=== PATIENT | male | born 1940 | race Caucasian/White ===

== ENCOUNTER 2019-02-27 11:41 | Inpatient (IN) | payer MEDICARE, BC ==
[~2019-02-27] VITALS: Ht 177.8 cm; Wt 86.0 kg
--- NOTE | 2019-02-27 12:23 | NUR ---
PT PLACED ON MONITOR, AT BEDSIDE. CALL LIGHT WITHIN REACH. MD AT BEDSIDE FOR ASSESSMENT
[2019-02-27 12:55] LABS: MEAN CORPUSCULAR HEMOGLOBIN 30.3 pg (27.5-34.5); MEAN CORPUSCULAR HGB CONC 32.8 g/dL (33.2-36.2); MEAN CORPUSCULAR VOLUME 92.4 fL (81-97); MEAN PLATELET VOLUME 8.7 fL (7.4-10.4); PLATELET COUNT 200 x10^3/uL (130-400); RED BLOOD COUNT 4.08 x10^6/uL (4.38-5.82); RED CELL DISTRIBUTION WIDTH 16.5 % (9.4-14.8)
--- NOTE | 2019-02-27 12:55 | NUR ---
PT TO US
[2019-02-27 13:04] LABS: ALANINE AMINOTRANSFERASE 35 U/L (12-78); ALBUMIN 3.5 g/dL (3.4-5.0); ANION GAP 8 mmol/L (5-15); CALCIUM 8.7 mg/dL (8.5-10.1); CHLORIDE 110 mmol/L (98-107); CREATININE 3.28 mg/dL (0.7-1.3)
[2019-02-27 13:05] LABS: D-DIMER 2.89 ug/mlFEU (0.00-0.52); INTERNATIONAL NORMALIZED RATIO 2.79 (0.93-1.1); PROTHROMBIN TIME 28.2 Seconds (9.6-11.5)
[2019-02-27 13:09] LABS: ALKALINE PHOSPHATASE 56 U/L (45-117); BILIRUBIN,TOTAL 0.5 mg/dL (0.2-1.0); TOTAL PROTEIN 6.9 g/dL (6.4-8.2)
[2019-02-27 13:11] LABS: BASOPHILS # (AUTO) 0.02 x10^3/uL (0-0.1); BASOPHILS % (AUTO) 0 % (0-1); EOSINOPHILS # (AUTO) 1.77 x10^3/uL (0-0.4); EOSINOPHILS % (AUTO) 21 % (1-7); LYMPHOCYTES # (AUTO) 0.96 x10^3/uL (1-3.4); LYMPHOCYTES % (AUTO) 12 % (22-44); MD SCAN; MONOCYTES # (AUTO) 0.61 x10^3/uL (0.2-0.8); MONOCYTES % (AUTO) 7 % (2-9); NEUTROPHILS # (AUTO) 4.92 x10^3/uL (1.8-6.8); NEUTROPHILS % (AUTO) 60 % (42-75); TROPONIN I 0.272 ng/mL (0.000-0.045)
--- NOTE | 2019-02-27 13:50 | NUR ---
COLIN RN AT BEDSIDE FOR US IV PLACEMENT
--- NOTE | 2019-02-27 13:54 | NUR ---
ADMITTING MD AT BEDSIDE
--- NOTE | 2019-02-27 14:05 | NUR ---
PTS RING REMOVED DUE TO UE SWELLING, RING GIVEN TO .
--- NOTE | 2019-02-27 14:13 | NUR ---
REPORT TO RICHEI CALDERON
[2019-02-27] MEDS ORDERED: WARFARIN BIOPROSTHETIC VALVE PROTOCOL 2-3 XX PRN (14:30)
[2019-02-27] MEDS ORDERED: FUROSEMIDE 40 MG/4 ML IV ONE (14:30)
[2019-02-27] MEDS ORDERED: SODIUM CHLORIDE 0.9%, 250ML IVBOLUS ONE (14:30)
[2019-02-27] MEDS ORDERED: hydrALAzine 20 MG/ML, 1ML IVPush PRN (14:30)
[2019-02-27] MEDS ORDERED: ROPI2TAB6 PO (14:33)
[2019-02-27] MEDS ORDERED: TAMS-11 PO (14:33)
[2019-02-27] MEDS ORDERED: ROSU20TA2 PO (14:33)
[2019-02-27] MEDS ORDERED: WARF2.5T32 PO (14:33)
[2019-02-27] MEDS ORDERED: ASPI-515 PO (14:33)
[2019-02-27] MEDS ORDERED: BISO10TA PO (14:33)
[2019-02-27] MEDS ORDERED: FURO-92 PO (14:33)
[2019-02-27] MEDS ORDERED: BICA50TA5 PO (14:33)
[2019-02-27] MEDS ORDERED: MEGE20TA PO (14:33)
[2019-02-27] MEDS ORDERED: LOSA50TA14 PO (14:33)
[2019-02-27] MEDS ORDERED: LORA10CA PO (14:33)
[2019-02-27] MEDS ORDERED: SPIR25TA5 PO (14:33)
--- NOTE | 2019-02-27 14:35 | NUR ---
UNABLE TO START ADDITIONAL IV WITH US BY COLIN CALDERON. PT HAS ONE WORKING IV
--- NOTE | 2019-02-27 14:38 | NUR ---
BP READING OF 86/58, NOTFIED . REPEAT BP 93/56. PER SEND TO FLOOR, DO NOT GIVE FLUIDS AT THIS TIME. FLOOR RN NOTIFIED ALSO. PT TO BE TRANSFERRED TO 527
[2019-02-27 15:05] VITALS: BP 98/59
[2019-02-27 15:07] VITALS: BP 98/59
[2019-02-27] MEDS ORDERED: FUROSEMIDE 20 MG/2 ML IV ONE (15:30)
[2019-02-27] MEDS: ACETAMINOPHEN 325 MG TABLET PO PRN (15:31)
[2019-02-27] MEDS ORDERED: FUROSEMIDE 40 MG/4 ML IV SCH (17:00)
[2019-02-27] MEDS: DIPHENHYDRAMINE 25 MG CAPSULE PO PRN (17:23)
[2019-02-27 17:38] LABS: MICROSCOPIC NOT IND
[2019-02-27 17:44] LABS: CULTURE INDICATED? NO
[2019-02-27] MEDS ORDERED: WARFARIN 2.5 MG TABLET PO-COUM ONE (18:00)
[2019-02-27] MEDS ORDERED: CARVEDILOL 12.5 MG TABLET PO SCH ×2 (18:00)
[2019-02-27 20:25] VITALS: BP 95/61
[2019-02-27 20:38] LABS: TROPONIN I 0.286 ng/mL (0.000-0.045)
[2019-02-27] MEDS: ATORVASTATIN 20 MG TABLET PO SCH (20:52)
[2019-02-28] VITALS (7 sets, daily range): BP systolic 95–116; BP diastolic 64–76
[2019-02-28] MEDS ORDERED: HYDROCORTISONE CRM 0.5%, 30GM TP PRN (01:00)
[2019-02-28 05:01] LABS: MEAN CORPUSCULAR HEMOGLOBIN 30.8 pg (27.5-34.5); MEAN CORPUSCULAR HGB CONC 32.8 g/dL (33.2-36.2); MEAN CORPUSCULAR VOLUME 93.7 fL (81-97); MEAN PLATELET VOLUME 8.8 fL (7.4-10.4); PLATELET COUNT 182 x10^3/uL (130-400); RED BLOOD COUNT 4.03 x10^6/uL (4.38-5.82); RED CELL DISTRIBUTION WIDTH 17.1 % (9.4-14.8)
[2019-02-28] MEDS: ACETAMINOPHEN 325 MG TABLET PO PRN (05:05)
[2019-02-28] MEDS: DIPHENHYDRAMINE 25 MG CAPSULE PO PRN ×2 (05:05→16:01)
[2019-02-28 05:12] LABS: ANION GAP 6 mmol/L (5-15); CALCIUM 8.6 mg/dL (8.5-10.1); CHLORIDE 111 mmol/L (98-107)
[2019-02-28 05:18] LABS: CHOL/HDL RATIO 4.9; CHOLESTEROL, TOTAL 97 mg/dL (140-239); CREATININE 2.95 mg/dL (0.7-1.3); HDL CHOL % 21 % (26-37); HDL CHOLESTEROL (DIRECT) 20 mg/dL (40-60); LDL CHOLESTEROL,CALCULATED 38 mg/dL (54-169); LDL/HDL RATIO 1.9 (0.5-3.0); TRIGLYCERIDES 194 mg/dL (50-200); TROPONIN I 0.288 ng/mL (0.000-0.045); VLDL CHOLESTEROL 39 mg/dL (0-25)
[2019-02-28 05:19] LABS: INTERNATIONAL NORMALIZED RATIO 2.99 (0.93-1.1); PROTHROMBIN TIME 30.1 Seconds (9.6-11.5)
[2019-02-28 05:53] LABS: BASOPHILS # (AUTO) 0.02 x10^3/uL (0-0.1); BASOPHILS % (AUTO) 0 % (0-1); EOSINOPHILS # (AUTO) 1.94 x10^3/uL (0-0.4); EOSINOPHILS % (AUTO) 23 % (1-7); LYMPHOCYTES # (AUTO) 1.31 x10^3/uL (1-3.4); LYMPHOCYTES % (AUTO) 15 % (22-44); MD SCAN; MONOCYTES # (AUTO) 0.75 x10^3/uL (0.2-0.8); MONOCYTES % (AUTO) 9 % (2-9); NEUTROPHILS # (AUTO) 4.47 x10^3/uL (1.8-6.8); NEUTROPHILS % (AUTO) 53 % (42-75)
[2019-02-28] MEDS ORDERED: HYDROCORTISONE CRM 2.5%, 20GM TP PRN (09:00)
[2019-02-28] MEDS ORDERED: TRIAMCINOLONE CRM 0.1%, 454GMS TP PRN (09:30)
[2019-02-28] MEDS ORDERED: DIPHENHYDRAMINE/ZINC CRM 2%, 30GM TP PRN (10:30)
[2019-02-28] MEDS: ASPIRIN 81 MG TABLET EC PO SCH (10:57)
[2019-02-28] MEDS: FUROSEMIDE 40 MG/4 ML IV SCH ×2 (12:52→19:58)
[2019-02-28] MEDS ORDERED: WARFARIN 2 MG TABLET PO-COUM SCH (18:00)
[2019-02-28] MEDS: ATORVASTATIN 20 MG TABLET PO SCH (19:59)
[2019-03-01 01:27] VITALS: BP 94/66
[2019-03-01 05:28] LABS: MEAN CORPUSCULAR HEMOGLOBIN 30.9 pg (27.5-34.5); MEAN CORPUSCULAR HGB CONC 32.8 g/dL (33.2-36.2); MEAN CORPUSCULAR VOLUME 94.3 fL (81-97); MEAN PLATELET VOLUME 9.2 fL (7.4-10.4); PLATELET COUNT 196 x10^3/uL (130-400); RED CELL DISTRIBUTION WIDTH 16.3 % (9.4-14.8)
[2019-03-01 05:38] LABS: ANION GAP 9 mmol/L (5-15); CALCIUM 8.1 mg/dL (8.5-10.1); CHLORIDE 106 mmol/L (98-107); CREATININE 2.69 mg/dL (0.7-1.3)
[2019-03-01 05:56] LABS: MD YES
[2019-03-01 06:04] LABS: BAND#(MANUAL) 0.08 x10^3/uL; BANDS%(MANUAL) 1 % (0-7); EOS#(MANUAL) 1.68 x10^3/uL (0.0-0.4); EOS% (MANUAL) 21 % (1-7); LYMPH#(MANUAL) 0.88 x10^3/uL (1-3.4); LYMPHS% (MANUAL) 11 % (22-44); MONOS#(MANUAL) 0.48 x10^3/uL (0.3-2.7); MONOS% (MANUAL) 6 % (2-9); SEG#(MANUAL) 4.88 x10^3/uL (1.8-6.8); SEGS% (MANUAL) 61 % (42-75)
[2019-03-01 06:05] LABS: <PLATELET ESTIMATE> ADEQUATE; <PLT MORPHOLOGY> NORMAL PLT MORPH; <RBC MORPHOLOGY> NORMAL
[2019-03-01] MEDS: ASPIRIN 81 MG TABLET EC PO SCH (06:21)
[2019-03-01 07:47] LABS: INTERNATIONAL NORMALIZED RATIO 3.5 (0.93-1.1)
[2019-03-01 07:55] VITALS: BP 109/77
[2019-03-01] MEDS: FUROSEMIDE 40 MG/4 ML IV SCH (07:57)
[2019-03-01] MEDS: DIPHENHYDRAMINE 25 MG CAPSULE PO PRN (07:58)
[2019-03-01] MEDS ORDERED: LOSARTAN 50MG TABLET PO SCH (12:30)
[2019-03-01] MEDS ORDERED: hydrOXyzine 10 MG/5 ML ORAL SOL PO SCH (13:00)
[2019-03-01] MEDS: ATENOLOL 100 MG TABLET PO SCH (13:12)
[2019-03-01] MEDS: FAMOTIDINE 20 MG TABLET PO SCH (13:12)
[2019-03-01] MEDS: TAMSULOSIN 0.4 MG CAP.ER.24H PO SCH (13:12)
[2019-03-01] MEDS ORDERED: ALBUTEROL/IPRATROPIUM 2.5MG/0.5MG, 3 ML ONE (14:56)
[2019-03-01] MEDS ORDERED: ALBUTEROL/IPRATROPIUM 2.5MG/0.5MG, 3 ML NPPB ONE (15:00)
[2019-03-01 15:45] VITALS: BP 104/71
[2019-03-01] MEDS ORDERED: WARFARIN 1 MG TABLET PO-COUM SCH (18:00)
[2019-03-01 19:51] VITALS: BP 108/72
[2019-03-01] MEDS ORDERED: ATORVASTATIN 80 MG TABLET PO SCH (21:00)
[2019-03-01] MEDS: BUMETANIDE 1 MG TABLET PO SCH (22:32)
[2019-03-02 01:36] VITALS: BP 98/62
[2019-03-02] MEDS: ASPIRIN 81 MG TABLET EC PO SCH (05:37)
[2019-03-02 05:41] LABS: INTERNATIONAL NORMALIZED RATIO 3.21 (0.93-1.1); PROTHROMBIN TIME 32.2 Seconds (9.6-11.5)
[2019-03-02 05:46] LABS: ANION GAP 8 mmol/L (5-15); CALCIUM 8.2 mg/dL (8.5-10.1); CHLORIDE 107 mmol/L (98-107); CREATININE 2.58 mg/dL (0.7-1.3)
[2019-03-02 08:09] VITALS: BP 101/69
[2019-03-02] MEDS: TAMSULOSIN 0.4 MG CAP.ER.24H PO SCH (10:09)
[2019-03-02] MEDS: ATENOLOL 100 MG TABLET PO SCH (10:10)
[2019-03-02] MEDS: FAMOTIDINE 20 MG TABLET PO SCH (10:11)
[2019-03-02] MEDS: BUMETANIDE 1 MG TABLET PO SCH ×2 (10:13→21:45)
[2019-03-02] MEDS: ACETAMINOPHEN 325 MG TABLET PO PRN ×3 (10:37→21:45)
[2019-03-02 13:31] VITALS: BP 97/60
[2019-03-02] MEDS ORDERED: WARFARIN 1 MG TABLET PO-COUM ONE (18:00)
[2019-03-02 20:10] VITALS: BP 100/64
[2019-03-03 01:41] VITALS: BP 108/69
[2019-03-03] MEDS: ASPIRIN 81 MG TABLET EC PO SCH (05:03)
[2019-03-03 05:55] LABS: ANION GAP 8 mmol/L (5-15); CALCIUM 8.3 mg/dL (8.5-10.1); CHLORIDE 110 mmol/L (98-107)
[2019-03-03 05:57] LABS: CREATININE 2.72 mg/dL (0.7-1.3)
[2019-03-03 07:26] VITALS: BP 104/64
[2019-03-03 08:00] LABS: INTERNATIONAL NORMALIZED RATIO 2.18 (0.93-1.1); PROTHROMBIN TIME 22.2 Seconds (9.6-11.5)
[2019-03-03] MEDS: ATENOLOL 100 MG TABLET PO SCH (09:47)
[2019-03-03] MEDS: TAMSULOSIN 0.4 MG CAP.ER.24H PO SCH (09:48)
[2019-03-03] MEDS: HEPARIN 5,000 UNITS/ML, 1ML SQ SCH ×2 (09:48→17:56)
[2019-03-03] MEDS: FAMOTIDINE 20 MG TABLET PO SCH (09:48)
[2019-03-03] MEDS: BUMETANIDE 1 MG TABLET PO SCH (09:48)
[2019-03-03] MEDS: ACETAMINOPHEN 325 MG TABLET PO PRN ×2 (10:12→16:32)
[2019-03-03] MEDS ORDERED: HEMORRHOIDAL OINT, 28 GM (PREP H) RC PRN (11:30)
[2019-03-03 14:16] VITALS: BP 104/69
[2019-03-03 15:18] LABS: ANA SCREEN NEGATIVE (Negative)
[2019-03-03] MEDS: FUROSEMIDE 40 MG/4 ML IV SCH (16:32)
[2019-03-03] MEDS: methylPREDNISolone SOD SUCC 125 MG/2 ML IVPush SCH (17:56)
[2019-03-03 19:24] VITALS: BP_SYST 113; BP_SYST 125; BP_DIAS 72; BP_DIAS 74
[2019-03-03 23:19] LABS: CREATININE,URINE RANDOM 36.3 mg/dL
[2019-03-04] MEDS: HEPARIN 5,000 UNITS/ML, 1ML SQ SCH ×3 (01:27→16:43)
[2019-03-04 01:38] VITALS: BP 110/68
[2019-03-04] MEDS: ASPIRIN 81 MG TABLET EC PO SCH (05:07)
[2019-03-04] MEDS: methylPREDNISolone SOD SUCC 125 MG/2 ML IVPush SCH ×2 (05:07→16:42)
[2019-03-04] MEDS: ACETAMINOPHEN 325 MG TABLET PO PRN (05:08)
[2019-03-04] MEDS: DIPHENHYDRAMINE 25 MG CAPSULE PO PRN (05:29)
[2019-03-04 05:38] LABS: INTERNATIONAL NORMALIZED RATIO 1.66 (0.93-1.1); PROTHROMBIN TIME 17.1 Seconds (9.6-11.5)
[2019-03-04 05:40] LABS: ANION GAP 7 mmol/L (5-15); CALCIUM 8.4 mg/dL (8.5-10.1); CHLORIDE 111 mmol/L (98-107)
[2019-03-04 05:42] LABS: BASOPHILS # (AUTO) 0.01 x10^3/uL (0-0.1); BASOPHILS % (AUTO) 0 % (0-1); EOSINOPHILS # (AUTO) 0.01 x10^3/uL (0-0.4); EOSINOPHILS % (AUTO) 0 % (1-7); LYMPHOCYTES # (AUTO) 0.44 x10^3/uL (1-3.4); LYMPHOCYTES % (AUTO) 10 % (22-44); MD NO; MEAN CORPUSCULAR HEMOGLOBIN 30.8 pg (27.5-34.5); MEAN CORPUSCULAR HGB CONC 33.4 g/dL (33.2-36.2); MEAN CORPUSCULAR VOLUME 92.1 fL (81-97); MEAN PLATELET VOLUME 8.8 fL (7.4-10.4); MONOCYTES # (AUTO) 0.07 x10^3/uL (0.2-0.8); MONOCYTES % (AUTO) 2 % (2-9); NEUTROPHILS # (AUTO) 4.07 x10^3/uL (1.8-6.8); NEUTROPHILS % (AUTO) 89 % (42-75); PLATELET COUNT 194 x10^3/uL (130-400); RED BLOOD COUNT 3.72 x10^6/uL (4.38-5.82); RED CELL DISTRIBUTION WIDTH 17.1 % (9.4-14.8)
[2019-03-04 05:47] LABS: % IRON SATURATION 14 % (20-55); CREATININE 2.65 mg/dL (0.7-1.3); IRON LEVEL 45 mcg/dL (65-175); TOTAL IRON BINDING CAPACITY 315 mcg/dL (250-450)
[2019-03-04 06:56] VITALS: BP 114/72
[2019-03-04] MEDS: FAMOTIDINE 20 MG TABLET PO SCH (08:34)
[2019-03-04] MEDS: FUROSEMIDE 40 MG/4 ML IV SCH ×2 (08:34→16:42)
[2019-03-04] MEDS: ATENOLOL 100 MG TABLET PO SCH (08:35)
[2019-03-04] MEDS: TAMSULOSIN 0.4 MG CAP.ER.24H PO SCH (08:35)
[2019-03-04] MEDS: LOSARTAN 50MG TABLET PO SCH (11:05)
[2019-03-04] MEDS: SPIRONOLACTONE 25 MG TABLET PO SCH (11:06)
[2019-03-04 14:07] VITALS: BP 106/65
[2019-03-04] MEDS: CARVEDILOL 3.125 MG TABLET PO SCH (17:54)
[2019-03-04 19:25] VITALS: BP 106/69
[2019-03-05 01:10] VITALS: BP 93/62
[2019-03-05] MEDS: HEPARIN 5,000 UNITS/ML, 1ML SQ SCH ×3 (01:12→17:04)
[2019-03-05] MEDS: methylPREDNISolone SOD SUCC 125 MG/2 ML IVPush SCH ×2 (05:59→16:59)
[2019-03-05] MEDS: ASPIRIN 81 MG TABLET EC PO SCH (05:59)
[2019-03-05] MEDS: CARVEDILOL 3.125 MG TABLET PO SCH ×2 (05:59→17:06)
[2019-03-05 06:16] LABS: INTERNATIONAL NORMALIZED RATIO 1.42 (0.93-1.1); PROTHROMBIN TIME 14.7 Seconds (9.6-11.5)
[2019-03-05 06:23] LABS: ALBUMIN 3.2 g/dL (3.4-5.0); CALCIUM 8.4 mg/dL (8.5-10.1); CHLORIDE 110 mmol/L (98-107)
[2019-03-05 06:24] LABS: ANION GAP 10 mmol/L (5-15); CREATININE 2.62 mg/dL (0.7-1.3)
[2019-03-05 06:36] LABS: BASOPHILS # (AUTO) 0.01 x10^3/uL (0-0.1); BASOPHILS % (AUTO) 0 % (0-1); EOSINOPHILS % (AUTO) 1 % (1-7); LYMPHOCYTES % (AUTO) 7 % (22-44); MD NO; MEAN CORPUSCULAR HGB CONC 32.8 g/dL (33.2-36.2); MEAN CORPUSCULAR VOLUME 94.4 fL (81-97); MEAN PLATELET VOLUME 9.7 fL (7.4-10.4); MONOCYTES # (AUTO) 0.31 x10^3/uL (0.2-0.8); MONOCYTES % (AUTO) 4 % (2-9); NEUTROPHILS # (AUTO) 6.53 x10^3/uL (1.8-6.8); NEUTROPHILS % (AUTO) 88 % (42-75); PLATELET COUNT 186 x10^3/uL (130-400); RED BLOOD COUNT 3.47 x10^6/uL (4.38-5.82); RED CELL DISTRIBUTION WIDTH 17.2 % (9.4-14.8)
[2019-03-05 06:52] VITALS: BP 112/73
[2019-03-05] MEDS: FUROSEMIDE 20 MG TABLET PO SCH ×2 (09:22→17:07)
[2019-03-05] MEDS: FAMOTIDINE 20 MG TABLET PO SCH (09:22)
[2019-03-05] MEDS: SPIRONOLACTONE 25 MG TABLET PO SCH (09:23)
[2019-03-05] MEDS: LOSARTAN 50MG TABLET PO SCH (09:23)
[2019-03-05] MEDS: TAMSULOSIN 0.4 MG CAP.ER.24H PO SCH (09:23)
[2019-03-05] MEDS: ACETAMINOPHEN 325 MG TABLET PO PRN ×3 (09:24→21:42)
[2019-03-05 16:07] VITALS: BP 107/71
[2019-03-05] MEDS ORDERED: FUROSEMIDE 20 MG TABLET PO SCH (17:00)
[2019-03-05 20:04] VITALS: BP 121/74
[2019-03-06] MEDS: HEPARIN 5,000 UNITS/ML, 1ML SQ SCH ×2 (01:06→09:20)
[2019-03-06 02:06] VITALS: BP 108/68
[2019-03-06 05:13] LABS: BASOPHILS # (AUTO) 0.01 x10^3/uL (0-0.1); BASOPHILS % (AUTO) 0 % (0-1); EOSINOPHILS % (AUTO) 0 % (1-7); LYMPHOCYTES # (AUTO) 0.47 x10^3/uL (1-3.4); LYMPHOCYTES % (AUTO) 6 % (22-44); MD NO; MEAN CORPUSCULAR HEMOGLOBIN 31.2 pg (27.5-34.5); MEAN CORPUSCULAR HGB CONC 33.1 g/dL (33.2-36.2); MEAN CORPUSCULAR VOLUME 94.1 fL (81-97); MEAN PLATELET VOLUME 9.5 fL (7.4-10.4); MONOCYTES # (AUTO) 0.33 x10^3/uL (0.2-0.8); MONOCYTES % (AUTO) 4 % (2-9); NEUTROPHILS # (AUTO) 6.86 x10^3/uL (1.8-6.8); NEUTROPHILS % (AUTO) 89 % (42-75); PLATELET COUNT 188 x10^3/uL (130-400); RED BLOOD COUNT 3.52 x10^6/uL (4.38-5.82); RED CELL DISTRIBUTION WIDTH 17.7 % (9.4-14.8)
[2019-03-06 05:22] LABS: INTERNATIONAL NORMALIZED RATIO 1.29 (0.93-1.1); PROTHROMBIN TIME 13.4 Seconds (9.6-11.5)
[2019-03-06 05:29] LABS: CALCIUM 8.1 mg/dL (8.5-10.1); CHLORIDE 109 mmol/L (98-107)
[2019-03-06 05:32] LABS: ANION GAP 11 mmol/L (5-15)
[2019-03-06] MEDS: methylPREDNISolone SOD SUCC 125 MG/2 ML IVPush SCH (05:53)
[2019-03-06] MEDS: ASPIRIN 81 MG TABLET EC PO SCH (05:53)
[2019-03-06] MEDS: CARVEDILOL 3.125 MG TABLET PO SCH (05:53)
[2019-03-06] MEDS ORDERED: FUROSEMIDE 80 MG TABLET PO SCH (08:00)
[2019-03-06] MEDS ORDERED: POTASSIUM CHLORIDE 20 MEQ TAB.ER.PRT PO ONE (08:00)
[2019-03-06 08:06] VITALS: BP 101/66
[2019-03-06] MEDS ORDERED: FURO80TA3 PO (09:11)
[2019-03-06] MEDS ORDERED: APIX2.5T PO (09:11)
[2019-03-06] MEDS ORDERED: PRED20TA PO ×2 (09:11)
[2019-03-06 09:18] VITALS: BP 108/67
[2019-03-06] MEDS: ACETAMINOPHEN 325 MG TABLET PO PRN (09:19)
[2019-03-06] MEDS: TAMSULOSIN 0.4 MG CAP.ER.24H PO SCH (09:19)
[2019-03-06] MEDS: FAMOTIDINE 20 MG TABLET PO SCH (09:20)
[2019-03-06] MEDS: LOSARTAN 50MG TABLET PO SCH (09:52)
[2019-03-06] MEDS: SPIRONOLACTONE 25 MG TABLET PO SCH (09:52)
[2019-03-06] MEDS ORDERED: POTA20TA14 PO ×2 (10:15)
== END 2019-03-06 12:29 | disposition home health service (06) | DRG 280 ==
LOC: ED 13:37 → EDIP 13:38 → ED 14:06 → 5SO 15:02 → DCLOUNGE 03-06 12:19
PROVIDERS: ADMIT Internal Medicine Infectious Disease; ATTEND Internal Medicine
DX: I13.0 Hypertensive heart and chronic kidney disease with heart failure and stage 1 through stage 4 chronic kidney disease, or unspecified chronic kidney disease (principal); I50.23 Acute on chronic systolic (congestive) heart failure; I21.A1 Myocardial infarction type 2; N17.9 Acute kidney failure, unspecified; D64.9 Anemia, unspecified; E78.5 Hyperlipidemia, unspecified; E87.6 Hypokalemia; I25.10 Atherosclerotic heart disease of native coronary artery without angina pectoris; I25.5 Ischemic cardiomyopathy; I48.91 Unspecified atrial fibrillation; L27.0 Generalized skin eruption due to drugs and medicaments taken internally; L29.9 Pruritus, unspecified; N18.3 Chronic kidney disease, stage 3 (moderate); N40.0 Benign prostatic hyperplasia without lower urinary tract symptoms; Z79.01 Long term (current) use of anticoagulants; Z82.49 Family history of ischemic heart disease and other diseases of the circulatory system; Z85.46 Personal history of malignant neoplasm of prostate; Z87.891 Personal history of nicotine dependence; Z95.5 Presence of coronary angioplasty implant and graft; Z96.612 Presence of left artificial shoulder joint; Z96.642 Presence of left artificial hip joint; Z95.3 Presence of xenogenic heart valve; Z88.6 Allergy status to analgesic agent; Z88.2 Allergy status to sulfonamides
CPT/HCPCS: 36415; 71045; 76770; 80048; 80053; 80061; 80069; 81003; 82570; 82728; 83520; 83540; 83550; 83735; 83880; 84100; 84156; 84484; 85025; 85379; 85610; 85730; 86038; 87389; 93005; 93306; 94640; G0378; J1644; J1940; J7620; J2930; Q0163; Q0177

== ENCOUNTER 2019-03-16 21:12 | Inpatient (IN) | payer MEDICARE, BC ==
[~2019-03-16] VITALS: Ht 177.8 cm; Wt 87.1 kg
[~2019-03-16 21:12] MED LIST: APIX2.5T PO; ASPI-515 PO; BICA50TA5 PO; BISO10TA PO; FURO-92 PO; FURO80TA3 PO; LORA10CA PO; LOSA50TA14 PO; MEGE20TA PO; POTA20TA14 PO; PRED20TA PO; ROPI2TAB6 PO; ROSU20TA2 PO; SPIR25TA5 PO; TAMS-11 PO; WARF2.5T32 PO
--- NOTE | 2019-03-16 21:27 | NUR ---
PT BIB EMS TRANSFER FROM [facility]. PT SENT D/T SOB, ABDOMINAL DISTENTION AND PEDAL EDEMA. PT DENIES CP OR DIFICULTY BREATHING, PT REPORTS LAST BM YESTERDAY. PT REPORTS DECREASED ABILITY TO MOVE AROUND AT HOME WITH INCREASED FATIGUE SINCE D/C FROM [facility] LAST WEEK. PT PAST ADMISSION FOR CHF EXACERBATION. PT DENIES ANY OTHER C/O AT THIS TIME. PT CONNECTED TO ALL MONITORING, ALL SAFETY MEASURES IN PLACE. PT PLACED ON 2L NC TO MAINTAIN O2 SAT. ERP IN TO SEE PT UPON ADMIT TO ED.
[2019-03-16] MEDS ORDERED: FUROSEMIDE 20 MG/2 ML IV ONE (21:30)
[2019-03-16] MEDS ORDERED: METOPROLOL 1 MG/ML, 5ML IVPush ONE ×3 (21:30→23:00)
--- NOTE | 2019-03-16 21:30 | NUR ---
EKG PERFORMED. LAB IN ROOM FOR BLOOD DRAW AT THIS TIME. PT UPDATED ON POC, ALL QUESTIONS ANSWERED.
[2019-03-16] MEDS ORDERED: FUROSEMIDE 20 MG/2 ML ONE (21:47)
[2019-03-16] MEDS ORDERED: METOPROLOL 1 MG/ML, 5ML ONE ×3 (21:48→23:11)
[2019-03-16 21:49] LABS: ANION GAP 17 mmol/L (5-15); CALCIUM 8.3 mg/dL (8.5-10.1); CHLORIDE 99 mmol/L (98-107); CREATININE 2.69 mg/dL (0.7-1.3)
--- NOTE | 2019-03-16 22:15 | NUR ---
UPDATED ERP ON CURRENT VS, NEW ORDER PROVIDED BY ERP.
[2019-03-16 22:27] LABS: MICROSCOPIC AUTO
--- NOTE | 2019-03-16 22:27 | NUR ---
PT MEDICATED PER MAY. MONITORING CONNECTED. CALL LIGHT WITHIN REACH, ALL SAFETY MEASURES IN PLACE. PT O2 TITRATED DOWN TO 1L O2, SPO2 REMAINS AT 98%, PT TOLERATING WELL.
[2019-03-16 22:28] LABS: CULTURE INDICATED? NO
--- NOTE | 2019-03-16 23:19 | NUR ---
PT MEDICATED PER MAR. PT HR REMAINS APPX 117. OTHER VSS. PT DENIES ANY DISCOMFORT AT THIS TIME. ALL NEED MET AT THIS TIME.
[2019-03-16] MEDS ORDERED: DILTIAZEM 125 MG in SODIUM CHLORIDE 0.9% 100 ML IV SCH (23:30)
[2019-03-16] MEDS ORDERED: ONDANSETRON 2MG/ML, 2ML IVPush PRN (23:30)
--- NOTE | 2019-03-16 23:51 | NUR ---
FIRST ATTEMPT TO CALL REPORT
--- NOTE | 2019-03-17 | NUR ---
SECOND ATTEMPT TO CALL REPORT.
--- NOTE | 2019-03-17 00:06 | NUR ---
CALLED REPORT TO YUMIKO BETANCOURT.
--- NOTE | 2019-03-17 00:09 | NUR ---
MED REQUEST SENT TO PHARMACY.
--- NOTE | 2019-03-17 00:32 | NUR ---
PT. MEDICATED PER MAY. WORKING ON ESTABLISHING 2ND IV AT THIS TIME.
--- NOTE | 2019-03-17 00:46 | NUR ---
BRACHIAL IV INSERTED, CARDS DRIP INFUSING. YUMIKO BETANCOURT UPDATED. PT ON ALL MONITORING, ALL SAFETY MEASURES IN PLACE.
[2019-03-17 01:20] VITALS: BP 103/74
[2019-03-17] MEDS: BISOPROLOL MC SCH ×3 (01:30→17:53)
[2019-03-17] MEDS: ACETAMINOPHEN 325 MG TABLET PO PRN ×2 (02:29→11:55)
[2019-03-17] MEDS ORDERED: DILTIAZEM 125 MG in SODIUM CHLORIDE 0.9% 100 ML IV SCH ×4 (02:30→23:30)
[2019-03-17 05:15] LABS: BASOPHILS # (AUTO) 0.01 x10^3/uL (0-0.1); BASOPHILS % (AUTO) 0 % (0-1); EOSINOPHILS # (AUTO) 0.25 x10^3/uL (0-0.4); EOSINOPHILS % (AUTO) 1 % (1-7); LYMPHOCYTES # (AUTO) 0.88 x10^3/uL (1-3.4); LYMPHOCYTES % (AUTO) 5 % (22-44); MD NO; MEAN CORPUSCULAR HEMOGLOBIN 31.4 pg (27.5-34.5); MEAN CORPUSCULAR HGB CONC 33.1 g/dL (33.2-36.2); MEAN CORPUSCULAR VOLUME 94.7 fL (81-97); MEAN PLATELET VOLUME 9.9 fL (7.4-10.4); MONOCYTES % (AUTO) 4 % (2-9); NEUTROPHILS # (AUTO) 16.12 x10^3/uL (1.8-6.8); NEUTROPHILS % (AUTO) 89 % (42-75); PLATELET COUNT 109 x10^3/uL (130-400); RED CELL DISTRIBUTION WIDTH 18.2 % (9.4-14.8)
[2019-03-17 05:25] VITALS: BP 107/67
[2019-03-17 05:27] LABS: ANION GAP 14 mmol/L (5-15); CALCIUM 8.3 mg/dL (8.5-10.1); CHLORIDE 99 mmol/L (98-107); CREATININE 2.76 mg/dL (0.7-1.3)
[2019-03-17 07:24] VITALS: BP 105/82
[2019-03-17] MEDS ORDERED: CARVEDILOL 12.5 MG TABLET PO SCH (08:00)
[2019-03-17] MEDS ORDERED: FUROSEMIDE 80 MG TABLET PO SCH (08:00)
[2019-03-17] MEDS: ASPIRIN 81 MG TABLET EC PO SCH (08:18)
[2019-03-17] MEDS: APIXABAN 2.5 MG TABLET PO SCH ×2 (08:18→21:39)
[2019-03-17] MEDS: TAMSULOSIN 0.4 MG CAP.ER.24H PO SCH (08:19)
[2019-03-17] MEDS: LORATADINE 10 MG TABLET PO SCH (08:19)
[2019-03-17] MEDS ORDERED: POTASSIUM CHLORIDE 20 MEQ TAB.ER.PRT PO SCH (09:00)
[2019-03-17] MEDS ORDERED: ROPINIROLE 1MG TABLET PO SCH (09:00)
[2019-03-17] MEDS: Bisoprolol Fumarate 10 MG HOMEMEDPO SCH (12:05)
[2019-03-17] MEDS ORDERED: CARVEDILOL 12.5 MG TABLET PO ONE (12:30)
[2019-03-17 13:15] VITALS: BP 110/79
[2019-03-17] MEDS: FUROSEMIDE 40 MG/4 ML IV SCH (18:25)
[2019-03-17] MEDS: CARVEDILOL 25 MG TABLET PO SCH (18:25)
[2019-03-17 19:41] VITALS: BP 122/77
[2019-03-17] MEDS: ATORVASTATIN 80 MG TABLET PO SCH (21:39)
[2019-03-18] MEDS: BISOPROLOL MC SCH ×3 (01:20→17:02)
[2019-03-18 01:30] VITALS: BP 118/78
[2019-03-18 05:27] VITALS: BP 99/65
[2019-03-18] MEDS: CARVEDILOL 25 MG TABLET PO SCH ×2 (05:29→17:16)
[2019-03-18 06:17] LABS: ALBUMIN 2.9 g/dL (3.4-5.0); ANION GAP 14 mmol/L (5-15); CALCIUM 8.2 mg/dL (8.5-10.1); CHLORIDE 98 mmol/L (98-107)
[2019-03-18 06:18] LABS: BASOPHILS % (AUTO) 0 % (0-1); EOSINOPHILS % (AUTO) 0 % (1-7); LYMPHOCYTES # (AUTO) 0.47 x10^3/uL (1-3.4); LYMPHOCYTES % (AUTO) 4 % (22-44); MD NO; MEAN CORPUSCULAR HEMOGLOBIN 31.5 pg (27.5-34.5); MEAN CORPUSCULAR HGB CONC 33.9 g/dL (33.2-36.2); MEAN CORPUSCULAR VOLUME 93.1 fL (81-97); MEAN PLATELET VOLUME 9.8 fL (7.4-10.4); MONOCYTES # (AUTO) 0.52 x10^3/uL (0.2-0.8); MONOCYTES % (AUTO) 5 % (2-9); NEUTROPHILS # (AUTO) 10.47 x10^3/uL (1.8-6.8); NEUTROPHILS % (AUTO) 91 % (42-75); PLATELET COUNT 100 x10^3/uL (130-400); RED BLOOD COUNT 4.24 x10^6/uL (4.38-5.82); RED CELL DISTRIBUTION WIDTH 17.7 % (9.4-14.8)
[2019-03-18 06:21] LABS: ALANINE AMINOTRANSFERASE 630 U/L (12-78); ALKALINE PHOSPHATASE 55 U/L (45-117); BILIRUBIN,TOTAL 1.7 mg/dL (0.2-1.0); CREATININE 2.46 mg/dL (0.7-1.3); TOTAL PROTEIN 5.6 g/dL (6.4-8.2)
[2019-03-18] MEDS: Bisoprolol Fumarate 10 MG HOMEMEDPO SCH (07:38)
[2019-03-18 07:44] VITALS: BP 103/72
[2019-03-18] MEDS: FUROSEMIDE 40 MG/4 ML IV SCH ×2 (08:11→17:16)
[2019-03-18] MEDS: ASPIRIN 81 MG TABLET EC PO SCH (08:12)
[2019-03-18] MEDS: LORATADINE 10 MG TABLET PO SCH (08:12)
[2019-03-18] MEDS: APIXABAN 2.5 MG TABLET PO SCH ×2 (08:12→20:25)
[2019-03-18] MEDS: TAMSULOSIN 0.4 MG CAP.ER.24H PO SCH (08:12)
[2019-03-18] MEDS: OXYcodone IR 5MG TABLET PO PRN ×2 (11:14→20:26)
[2019-03-18] MEDS ORDERED: AMIODARONE 150 MG in DEXTROSE 5% 100 ML IV ONE (12:00)
[2019-03-18] MEDS ORDERED: FILTER 0.22 MICRON FOR AMIODARONE IV PRN (12:00)
[2019-03-18 12:15] VITALS: BP 94/76
[2019-03-18] MEDS: AMIODARONE 900 MG in DEXTROSE 5% 482 ML IV PRN (12:20)
[2019-03-18] MEDS ORDERED: DILTIAZEM 125 MG in SODIUM CHLORIDE 0.9% 100 ML IV SCH (15:00)
[2019-03-18 18:44] VITALS: BP 99/69
[2019-03-18] MEDS: ATORVASTATIN 80 MG TABLET PO SCH (20:25)
[2019-03-18] MEDS: ROPINIROLE 1MG TABLET PO SCH (20:27)
[2019-03-19] MEDS: BISOPROLOL MC SCH ×2 (01:30→08:43)
[2019-03-19 01:53] VITALS: BP 103/74
[2019-03-19] MEDS: CARVEDILOL 25 MG TABLET PO SCH ×2 (05:12→18:21)
[2019-03-19 05:13] VITALS: BP 104/74
[2019-03-19 05:50] LABS: CHLORIDE 96 mmol/L (98-107)
[2019-03-19 06:03] LABS: ALANINE AMINOTRANSFERASE 498 U/L (12-78); ALBUMIN 3.1 g/dL (3.4-5.0); ALKALINE PHOSPHATASE 54 U/L (45-117); ANION GAP 12 mmol/L (5-15); BILIRUBIN,TOTAL 1.2 mg/dL (0.2-1.0); CREATININE 2.51 mg/dL (0.7-1.3)
[2019-03-19 06:06] LABS: BASOPHILS % (AUTO) 0 % (0-1); EOSINOPHILS # (AUTO) 0.16 x10^3/uL (0-0.4); EOSINOPHILS % (AUTO) 2 % (1-7); LYMPHOCYTES # (AUTO) 0.45 x10^3/uL (1-3.4); LYMPHOCYTES % (AUTO) 4 % (22-44); MD SCAN; MEAN CORPUSCULAR HEMOGLOBIN 31.6 pg (27.5-34.5); MEAN CORPUSCULAR HGB CONC 33.4 g/dL (33.2-36.2); MEAN CORPUSCULAR VOLUME 94.4 fL (81-97); MEAN PLATELET VOLUME 9.7 fL (7.4-10.4); MONOCYTES % (AUTO) 5 % (2-9); NEUTROPHILS # (AUTO) 10.04 x10^3/uL (1.8-6.8); NEUTROPHILS % (AUTO) 90 % (42-75); PLATELET COUNT 92 x10^3/uL (130-400); RED BLOOD COUNT 4.15 x10^6/uL (4.38-5.82); RED CELL DISTRIBUTION WIDTH 17.7 % (9.4-14.8)
[2019-03-19] MEDS: FUROSEMIDE 40 MG/4 ML IV SCH ×2 (07:52→17:20)
[2019-03-19 07:55] VITALS: BP 101/74
[2019-03-19] MEDS: Bisoprolol Fumarate 10 MG HOMEMEDPO SCH (08:38)
[2019-03-19] MEDS: ASPIRIN 81 MG TABLET EC PO SCH (08:39)
[2019-03-19] MEDS: LORATADINE 10 MG TABLET PO SCH (08:39)
[2019-03-19] MEDS: OXYcodone IR 5MG TABLET PO PRN ×2 (08:40→20:17)
[2019-03-19] MEDS: TAMSULOSIN 0.4 MG CAP.ER.24H PO SCH (08:40)
[2019-03-19] MEDS: APIXABAN 2.5 MG TABLET PO SCH ×2 (08:42→20:16)
[2019-03-19] MEDS: AMIODARONE 900 MG in DEXTROSE 5% 482 ML IV PRN (09:06)
[2019-03-19] MEDS ORDERED: ATENOLOL 50 MG TABLET PO SCH (10:00)
[2019-03-19] MEDS ORDERED: AMIODARONE 150 MG in DEXTROSE 5% 100 ML IV ONE (11:30)
[2019-03-19 19:15] VITALS: BP 108/78
[2019-03-19] MEDS: ROPINIROLE 1MG TABLET PO SCH (20:16)
[2019-03-19] MEDS: ATORVASTATIN 80 MG TABLET PO SCH (20:16)
[2019-03-20 04:00] VITALS: BP 98/68
[2019-03-20 05:51] LABS: ALBUMIN 2.8 g/dL (3.4-5.0); ANION GAP 12 mmol/L (5-15); CALCIUM 7.7 mg/dL (8.5-10.1); CHLORIDE 97 mmol/L (98-107)
[2019-03-20 05:54] LABS: CREATININE 2.37 mg/dL (0.7-1.3)
[2019-03-20 05:57] VITALS: BP 109/78
[2019-03-20 05:57] LABS: MEAN CORPUSCULAR HEMOGLOBIN 31.4 pg (27.5-34.5); MEAN CORPUSCULAR HGB CONC 33.1 g/dL (33.2-36.2); RED BLOOD COUNT 4.06 x10^6/uL (4.38-5.82); RED CELL DISTRIBUTION WIDTH 17.7 % (9.4-14.8)
[2019-03-20] MEDS: CARVEDILOL 25 MG TABLET PO SCH ×2 (06:00→18:07)
[2019-03-20 06:14] LABS: BASOPHILS % (AUTO) 0 % (0-1); EOSINOPHILS # (AUTO) 0.22 x10^3/uL (0-0.4); EOSINOPHILS % (AUTO) 2 % (1-7); LYMPHOCYTES # (AUTO) 0.42 x10^3/uL (1-3.4); LYMPHOCYTES % (AUTO) 4 % (22-44); MD SCAN; MEAN PLATELET VOLUME 9.7 fL (7.4-10.4); MONOCYTES % (AUTO) 5 % (2-9); NEUTROPHILS # (AUTO) 9.94 x10^3/uL (1.8-6.8); NEUTROPHILS % (AUTO) 90 % (42-75); PLATELET COUNT 83 x10^3/uL (130-400)
[2019-03-20] MEDS ORDERED: ERGOCALCIFEROL 50,000 UNIT CAPSULE PO SCH (08:00)
[2019-03-20 08:15] VITALS: BP 96/70
[2019-03-20] MEDS: FUROSEMIDE 40 MG/4 ML IV SCH ×2 (08:19→17:00)
[2019-03-20] MEDS: APIXABAN 2.5 MG TABLET PO SCH ×2 (08:20→20:30)
[2019-03-20] MEDS: LORATADINE 10 MG TABLET PO SCH (08:20)
[2019-03-20] MEDS: TAMSULOSIN 0.4 MG CAP.ER.24H PO SCH (08:21)
[2019-03-20] MEDS: ASPIRIN 81 MG TABLET EC PO SCH (08:21)
[2019-03-20] MEDS ORDERED: AMIODARONE 50 MG/ML, 3ML IVPush ONE (10:00)
[2019-03-20] MEDS ORDERED: AMIODARONE 150 MG in DEXTROSE 5% 100 ML IV ONE (10:30)
[2019-03-20] MEDS ORDERED: FILTER 0.22 MICRON IV ONE (10:30)
[2019-03-20] MEDS: AMIODARONE 900 MG in DEXTROSE 5% 482 ML IV PRN (10:45)
[2019-03-20 13:44] VITALS: BP 102/73
[2019-03-20 20:17] VITALS: BP 90/65
[2019-03-20] MEDS: ROPINIROLE 1MG TABLET PO SCH (20:30)
[2019-03-20] MEDS: ATORVASTATIN 80 MG TABLET PO SCH (20:30)
[2019-03-20] MEDS: OXYcodone IR 5MG TABLET PO PRN (20:32)
[2019-03-21 03:09] VITALS: BP 104/75
[2019-03-21 05:19] LABS: MEAN CORPUSCULAR HEMOGLOBIN 31.5 pg (27.5-34.5); MEAN CORPUSCULAR HGB CONC 33.4 g/dL (33.2-36.2); MEAN CORPUSCULAR VOLUME 94.1 fL (81-97); MEAN PLATELET VOLUME 9.6 fL (7.4-10.4); PLATELET COUNT 79 x10^3/uL (130-400); RED BLOOD COUNT 4.04 x10^6/uL (4.38-5.82); RED CELL DISTRIBUTION WIDTH 17.4 % (9.4-14.8)
[2019-03-21 05:21] LABS: ALANINE AMINOTRANSFERASE 324 U/L (12-78); ALBUMIN 2.8 g/dL (3.4-5.0); ANION GAP 11 mmol/L (5-15); CALCIUM 7.7 mg/dL (8.5-10.1); CHLORIDE 97 mmol/L (98-107)
[2019-03-21 05:23] LABS: ALKALINE PHOSPHATASE 56 U/L (45-117); BILIRUBIN,TOTAL 1.4 mg/dL (0.2-1.0); CREATININE 2.07 mg/dL (0.7-1.3); TOTAL PROTEIN 5.6 g/dL (6.4-8.2)
[2019-03-21] MEDS: CARVEDILOL 25 MG TABLET PO SCH ×2 (05:28→18:09)
[2019-03-21 06:36] VITALS: BP 110/82
[2019-03-21 06:53] LABS: BASOPHILS % (AUTO) 0 % (0-1); EOSINOPHILS # (AUTO) 0.01 x10^3/uL (0-0.4); EOSINOPHILS % (AUTO) 0 % (1-7); LYMPHOCYTES # (AUTO) 0.48 x10^3/uL (1-3.4); LYMPHOCYTES % (AUTO) 4 % (22-44); MD SCAN; MONOCYTES # (AUTO) 0.59 x10^3/uL (0.2-0.8); MONOCYTES % (AUTO) 5 % (2-9); NEUTROPHILS # (AUTO) 10.72 x10^3/uL (1.8-6.8); NEUTROPHILS % (AUTO) 91 % (42-75)
[2019-03-21] MEDS: FUROSEMIDE 40 MG/4 ML IV SCH ×2 (07:46→17:00)
[2019-03-21] MEDS: TAMSULOSIN 0.4 MG CAP.ER.24H PO SCH (08:47)
[2019-03-21] MEDS: APIXABAN 2.5 MG TABLET PO SCH ×2 (08:47→21:05)
[2019-03-21] MEDS: ASPIRIN 81 MG TABLET EC PO SCH (08:47)
[2019-03-21] MEDS: LORATADINE 10 MG TABLET PO SCH (08:47)
[2019-03-21 14:00] VITALS: BP 92/63
[2019-03-21 20:39] VITALS: BP 120/85
[2019-03-21] MEDS: ROPINIROLE 1MG TABLET PO SCH (21:05)
[2019-03-21] MEDS: AMIODARONE 200 MG TABLET PO SCH (21:05)
[2019-03-21] MEDS: ATORVASTATIN 80 MG TABLET PO SCH (21:05)
[2019-03-22 00:53] VITALS: BP 101/72
[2019-03-22 05:43] LABS: ALBUMIN 2.8 g/dL (3.4-5.0); ANION GAP 12 mmol/L (5-15); CALCIUM 7.8 mg/dL (8.5-10.1); CHLORIDE 97 mmol/L (98-107); MEAN CORPUSCULAR HEMOGLOBIN 31.8 pg (27.5-34.5); MEAN CORPUSCULAR HGB CONC 33.2 g/dL (33.2-36.2); MEAN CORPUSCULAR VOLUME 95.8 fL (81-97); RED BLOOD COUNT 3.93 x10^6/uL (4.38-5.82); RED CELL DISTRIBUTION WIDTH 17.7 % (9.4-14.8)
[2019-03-22 05:46] LABS: CREATININE 2.04 mg/dL (0.7-1.3)
[2019-03-22 05:58] LABS: MEAN PLATELET VOLUME 9.6 fL (7.4-10.4); PLATELET COUNT 72 x10^3/uL (130-400)
[2019-03-22 06:01] LABS: BASOPHILS % (AUTO) 0 % (0-1); EOSINOPHILS % (AUTO) 2 % (1-7); LYMPHOCYTES # (AUTO) 0.45 x10^3/uL (1-3.4); LYMPHOCYTES % (AUTO) 4 % (22-44); MD SCAN; MONOCYTES # (AUTO) 0.47 x10^3/uL (0.2-0.8); MONOCYTES % (AUTO) 4 % (2-9); NEUTROPHILS # (AUTO) 10.43 x10^3/uL (1.8-6.8); NEUTROPHILS % (AUTO) 90 % (42-75)
[2019-03-22] MEDS: CARVEDILOL 25 MG TABLET PO SCH ×2 (06:07→18:07)
[2019-03-22 07:25] VITALS: BP 108/79
[2019-03-22] MEDS: LORATADINE 10 MG TABLET PO SCH (10:00)
[2019-03-22] MEDS ORDERED: POTASSIUM CHLORIDE 20 MEQ TAB.ER.PRT PO ONE (10:00)
[2019-03-22] MEDS: TAMSULOSIN 0.4 MG CAP.ER.24H PO SCH (10:00)
[2019-03-22] MEDS: SPIRONOLACTONE 25 MG TABLET PO SCH ×2 (10:01→21:00)
[2019-03-22] MEDS: APIXABAN 2.5 MG TABLET PO SCH ×2 (10:01→21:00)
[2019-03-22] MEDS: FUROSEMIDE 80 MG TABLET PO SCH ×2 (10:01→21:00)
[2019-03-22] MEDS: AMIODARONE 200 MG TABLET PO SCH ×2 (10:02→21:00)
[2019-03-22 12:36] VITALS: BP 96/72
[2019-03-22 19:24] VITALS: BP 116/84
[2019-03-22] MEDS: ATORVASTATIN 80 MG TABLET PO SCH (21:00)
[2019-03-22] MEDS: ROPINIROLE 1MG TABLET PO SCH (21:05)
[2019-03-23 00:53] VITALS: BP 100/74
[2019-03-23] MEDS: CARVEDILOL 25 MG TABLET PO SCH (04:59)
[2019-03-23 05:23] LABS: MEAN CORPUSCULAR HEMOGLOBIN 31.7 pg (27.5-34.5); MEAN CORPUSCULAR HGB CONC 33.2 g/dL (33.2-36.2); MEAN CORPUSCULAR VOLUME 95.7 fL (81-97); MEAN PLATELET VOLUME 9.7 fL (7.4-10.4); PLATELET COUNT 68 x10^3/uL (130-400); RED BLOOD COUNT 3.95 x10^6/uL (4.38-5.82); RED CELL DISTRIBUTION WIDTH 18.5 % (9.4-14.8)
[2019-03-23 05:24] LABS: CALCIUM 7.8 mg/dL (8.5-10.1); CHLORIDE 100 mmol/L (98-107)
[2019-03-23 05:27] LABS: ALBUMIN 2.7 g/dL (3.4-5.0); ANION GAP 10 mmol/L (5-15); CREATININE 1.88 mg/dL (0.7-1.3)
[2019-03-23 06:00] LABS: BASOPHILS % (AUTO) 0 % (0-1); EOSINOPHILS # (AUTO) 0.22 x10^3/uL (0-0.4); EOSINOPHILS % (AUTO) 2 % (1-7); LYMPHOCYTES % (AUTO) 4 % (22-44); MD SCAN; MONOCYTES # (AUTO) 0.39 x10^3/uL (0.2-0.8); MONOCYTES % (AUTO) 4 % (2-9); NEUTROPHILS # (AUTO) 10.19 x10^3/uL (1.8-6.8); NEUTROPHILS % (AUTO) 90 % (42-75)
[2019-03-23 07:36] VITALS: BP 112/78
[2019-03-23] MEDS ORDERED: FUROSEMIDE 40 MG TABLET PO SCH (09:00)
[2019-03-23] MEDS: SPIRONOLACTONE 25 MG TABLET PO SCH (09:33)
[2019-03-23] MEDS: TAMSULOSIN 0.4 MG CAP.ER.24H PO SCH (09:33)
[2019-03-23] MEDS: LORATADINE 10 MG TABLET PO SCH (09:34)
[2019-03-23] MEDS: AMIODARONE 200 MG TABLET PO SCH (09:34)
[2019-03-23] MEDS: APIXABAN 2.5 MG TABLET PO SCH (09:34)
[2019-03-23] MEDS ORDERED: ERGO500017 PO (11:12)
[2019-03-23] MEDS ORDERED: PRED5TAB PO (11:12)
[2019-03-23] MEDS ORDERED: CARV25TA12 PO (11:12)
[2019-03-23] MEDS ORDERED: FURO40TA6 PO (11:12)
[2019-03-23] MEDS ORDERED: SPIR25TA PO (11:12)
[2019-03-23] MEDS ORDERED: AMIO200T42 PO (11:12)
[2019-03-23] MEDS ORDERED: ATOR-2 PO (11:13)
[2019-03-23 13:12] VITALS: BP 105/55
== END 2019-03-23 17:40 | DRG 291 ==
LOC: ED 21:22 → EDIP 23:17 → 5SO 03-17 01:11
PROVIDERS: ADMIT Internal Medicine; ATTEND Internal Medicine
DX: I13.0 Hypertensive heart and chronic kidney disease with heart failure and stage 1 through stage 4 chronic kidney disease, or unspecified chronic kidney disease (principal); N17.0 Acute kidney failure with tubular necrosis; I50.23 Acute on chronic systolic (congestive) heart failure; C79.51 Secondary malignant neoplasm of bone; D68.69 Other thrombophilia; E87.1 Hypo-osmolality and hyponatremia; E87.2 Acidosis; N18.4 Chronic kidney disease, stage 4 (severe); N25.81 Secondary hyperparathyroidism of renal origin; C61 Malignant neoplasm of prostate; Z66 Do not resuscitate; D64.9 Anemia, unspecified; D69.6 Thrombocytopenia, unspecified; D72.829 Elevated white blood cell count, unspecified; E78.5 Hyperlipidemia, unspecified; E87.6 Hypokalemia; I25.10 Atherosclerotic heart disease of native coronary artery without angina pectoris; I25.5 Ischemic cardiomyopathy; I48.91 Unspecified atrial fibrillation; M43.16 Spondylolisthesis, lumbar region; K57.90 Diverticulosis of intestine, part unspecified, without perforation or abscess without bleeding; M47.9 Spondylosis, unspecified; N40.1 Benign prostatic hyperplasia with lower urinary tract symptoms; R33.8 Other retention of urine; T38.0X5A Adverse effect of glucocorticoids and synthetic analogues, initial encounter; T50.2X5A Adverse effect of carbonic-anhydrase inhibitors, benzothiadiazides and other diuretics, initial encounter; Z96.611 Presence of right artificial shoulder joint; Z96.612 Presence of left artificial shoulder joint; Z96.643 Presence of artificial hip joint, bilateral; G56.00 Carpal tunnel syndrome, unspecified upper limb; I95.9 Hypotension, unspecified; R34 Anuria and oliguria; R94.5 Abnormal results of liver function studies; Z79.01 Long term (current) use of anticoagulants; Z87.891 Personal history of nicotine dependence; Z90.49 Acquired absence of other specified parts of digestive tract; Z95.3 Presence of xenogenic heart valve; Z95.5 Presence of coronary angioplasty implant and graft; Z95.810 Presence of automatic (implantable) cardiac defibrillator
CPT/HCPCS: 36415; 74176; 76700; 80048; 80053; 80069; 81001; 82306; 82570; 83735; 83970; 84100; 84156; 85025; 86704; 86706; 86708; 86803; 87340; 93005; G0378; J1940; J2405; J0282; J7060; J7512